=== PATIENT | female | born 1990 | race African-American/Black ===

== ENCOUNTER 2017-04-26 18:56 | Inpatient (IN) | payer OTHER ==
[~2017-04-26] VITALS: Ht 160 cm; Wt 52.4 kg
[~2017-04-26 18:56] MED LIST: CHROMAGEN,1 CAPSULE PO; FLAGYL500 MG PO; FLINTSTONES CO1 EAC1 PO; IBUPROFEN800 MG PO; PRENATAL TABLE1 EAC3 PO
[2017-04-26 21:17] LABS: ADD MEDTOX COMMENT Y; AMPHETAMINE NEGATIVE (500 ng/mL); BARBITURATES NEGATIVE (200 ng/mL); BENZODIAZEPINES NEGATIVE (150 ng/mL); COCAINE NEGATIVE (150 ng/mL); INTERNAL CONTROLS VALID? YES; METHADONE NEGATIVE (200 ng/mL); METHAMPHETAMINE NEGATIVE (500 ng/mL); OPIATES (MORPHINE) NEGATIVE (100 ng/mL); OXYCODONE NEGATIVE (100 ng/mL); PHENCYCLIDINE NEGATIVE (25 ng/mL); PROPOXYPHENE NEGATIVE (300 ng/mL); THC CANNABINOIDS PRESUMPTIVE POSITIVE (50 ng/mL); TRICYCLIC ANTIDEPRESSANTS NEGATIVE (300 ng/mL)
[2017-04-26 22:20] LABS: BASOPHIL COUNT 0.1 K/uL (0-0.1); EOSINOPHIL (%) 0.5 % (0-5); EOSINOPHIL COUNT 0.1 K/uL (0-0.3); IMMATURE GRANULOCYTE (%) 0.2 % (0.0-0.7); INSTRUMENT ABS NEUTROPHIL CT 7.1 K/uL; LYMPHOCYTE COUNT 2.4 K/uL (1.0-2.8); MCH 17.6 PG (29.0-34.0); MCHC 26.4 G/DL (30.0-36.0); MCV 66.8 FL (83-99); MEAN PLAT.VOLUME 10.5 uM^3 (9.5-12.4); MONOCYTE (%) 11.7 % (3-12); MONOCYTE COUNT 1.3 K/uL (0-0.8); NEUTROPHIL COUNT 7.1 K/uL (1.8-6.4); PLATELET COUNT 350 K/uL (156-360); RBC DIS.WIDTH-CV 19.9 % (11.8-14.6); RBC DIS.WIDTH-SD 44.2 % (39-53); RED BLOOD COUNT 5.39 M/uL (3.80-5.20); WHITE BLOOD COUNT 10.8 K/uL (4.1-10.2)
[2017-04-26 22:36] LABS: CHLORIDE 107 mEq/L (99-109); POTASSIUM 3.7 mEq/L (3.7-5.4); SODIUM 146 mEq/L (136-147)
[2017-04-26 22:38] LABS: GLUCOSE 116 mg/dL (70-99)
[2017-04-26 22:39] LABS: ANION GAP 22 MEQ/L (2-14)
[2017-04-26 22:41] LABS: GFR ESTIMATE (CALCULATED) > 59 mL/min/; SERUM ETHYL ALCOHOL < 10 mg/dL
[2017-04-26 22:42] LABS: UREA NITROGEN (BUN) 12 mg/dL (9-23)
[2017-04-26 22:51] LABS: QUANTITATIVE HCG < 4.0 MIU/ML
[2017-04-27 14:48] VITALS: BP 112/55
[2017-04-27 15:03] VITALS: BP 112/55
[2017-04-27 15:25] VITALS: BP 112/55
[2017-04-28 07:40] VITALS: BP 101/51
[2017-04-28 15:20] VITALS: BP 82/49
[2017-04-29 07:40] VITALS: BP 108/68
[2017-04-29 15:30] VITALS: BP 85/47
[2017-04-30 07:50] VITALS: BP 108/53
[2017-04-30] MEDS ORDERED: HALDOL5 MG PO (09:31)
[2017-04-30] MEDS ORDERED: BENZTROPINE MESY1 MG PO (09:31)
== END 2017-04-30 13:15 | disposition home or self-care (01) | DRG 885 ==
LOC: EME 18:56 → 1WEST 04-27 11:13 → EDOF 04-27 11:13 → 1WEST 04-27 11:13 → EDOF 04-27 12:33 → 1WEST 04-27 14:45
PROVIDERS: Emergency Medicine
DX: F29 Unspecified psychosis not due to a substance or known physiological condition (principal); F23 Brief psychotic disorder; F05 Delirium due to known physiological condition; F12.90 Cannabis use, unspecified, uncomplicated; F41.0 Panic disorder [episodic paroxysmal anxiety]; J45.909 Unspecified asthma, uncomplicated
CPT/HCPCS: 70450; 80048; 84702; 84999; 85025; 90837; 99281; 99284; G0480; J1630; J2060

== ENCOUNTER 2017-07-01 19:29 | Emergency (ER) | payer OTHER ==
[~2017-07-01] VITALS: Ht 160 cm; Wt 52.0 kg
[~2017-07-01 19:29] MED LIST changes: +BENZTROPINE MESY1 MG PO; +HALDOL5 MG PO
[2017-07-01 23:50] LABS: BASOPHIL COUNT 0.1 K/uL (0-0.1); EOSINOPHIL (%) 0.1 % (0-5); HEMATOCRIT 31.9 % (36.0-46.0); IMMATURE GRANULOCYTE (%) 0.6 % (0.0-0.7); IMMATURE GRANULOCYTE COUNT 0.1 K/uL; INSTRUMENT ABS NEUTROPHIL CT 8.3 K/uL; LYMPHOCYTE COUNT 1.6 K/uL (1.0-2.8); MCH 17.3 PG (29.0-34.0); MCHC 27.3 G/DL (30.0-36.0); MCV 63.4 FL (83-99); MEAN PLAT.VOLUME 10.2 uM^3 (9.5-12.4); MONOCYTE (%) 7.5 % (3-12); MONOCYTE COUNT 0.8 K/uL (0-0.8); NEUTROPHIL (%) 76.4 % (45-76); NEUTROPHIL COUNT 8.3 K/uL (1.8-6.4); PLATELET COUNT 498 K/uL (156-360); RBC DIS.WIDTH-CV 19.2 % (11.8-14.6); RBC DIS.WIDTH-SD 40.9 % (39-53); RED BLOOD COUNT 5.03 M/uL (3.80-5.20); WHITE BLOOD COUNT 10.9 K/uL (4.1-10.2)
[2017-07-01 23:56] LABS: CHLORIDE 100 mEq/L (99-109); POTASSIUM 3.3 mEq/L (3.7-5.4); SODIUM 139 mEq/L (136-147)
[2017-07-01 23:58] LABS: GLUCOSE 98 mg/dL (70-99)
[2017-07-01 23:59] LABS: ANION GAP 18 MEQ/L (2-14)
[2017-07-02 00:01] LABS: SERUM ETHYL ALCOHOL < 10 mg/dL
[2017-07-02 00:02] LABS: GFR ESTIMATE (CALCULATED) > 59 mL/min/
[2017-07-02 00:03] LABS: UREA NITROGEN (BUN) 14 mg/dL (9-23)
[2017-07-02 00:11] LABS: QUANTITATIVE HCG < 4.0 MIU/ML
[2017-07-02 00:34] LABS: AMPHETAMINE NEGATIVE (500 ng/mL); BARBITURATES NEGATIVE (200 ng/mL); BENZODIAZEPINES NEGATIVE (150 ng/mL); COCAINE NEGATIVE (150 ng/mL); METHADONE NEGATIVE (200 ng/mL); METHAMPHETAMINE NEGATIVE (500 ng/mL); OPIATES (MORPHINE) NEGATIVE (100 ng/mL); OXYCODONE NEGATIVE (100 ng/mL); PHENCYCLIDINE NEGATIVE (25 ng/mL); PROPOXYPHENE NEGATIVE (300 ng/mL); THC CANNABINOIDS PRESUMPTIVE POSITIVE (50 ng/mL); TRICYCLIC ANTIDEPRESSANTS NEGATIVE (300 ng/mL)
[2017-07-02 00:35] LABS: ADD MEDTOX COMMENT Y; INTERNAL CONTROLS VALID? YES
[2017-07-02 01:29] VITALS: BP 140/98
== END 2017-07-02 01:30 | disposition home or self-care (01) ==
LOC: EME 19:29
PROVIDERS: Emergency Medicine
DX: F20.9 Schizophrenia, unspecified (principal); F12.90 Cannabis use, unspecified, uncomplicated; Z87.891 Personal history of nicotine dependence
CPT/HCPCS: 80048; 84702; 84999; 85025; 90839; 99281; 99284; G0480